=== PATIENT | male | born 1965 | race African-American/Black ===

== ENCOUNTER 2017-11-13 12:02 | Emergency (ER) | payer SELFPAY ==
[~2017-11-13] VITALS: Ht 172.7 cm; Wt 82.0 kg
[2017-11-13 14:01] LABS: BASOPHIL (%) 0.7 % (0-1); EOSINOPHIL (%) 2.8 % (0-5); EOSINOPHIL COUNT 0.2 K/uL (0-0.3); HEMATOCRIT 40.3 % (38.0-50.0); HEMOGLOBIN 13.3 G/DL (12.5-16.6); IMMATURE GRANULOCYTE (%) 0.2 % (0.0-0.7); LYMPHOCYTE (%) 48.2 % (15-42); LYMPHOCYTE COUNT 2.8 K/uL (1.0-2.8); MCV 90.8 FL (86-99); MONOCYTE (%) 7.8 % (3-12); MONOCYTE COUNT 0.5 K/uL (0-0.8); NEUTROPHIL (%) 40.3 % (45-76); NEUTROPHIL COUNT 2.3 K/uL (1.8-6.4); PLATELET COUNT 270 K/uL (156-360); RBC DIS.WIDTH-CV 12.4 % (11.8-14.6); RBC DIS.WIDTH-SD 41.1 % (39-53); RED BLOOD COUNT 4.44 M/uL (4.00-5.50); WHITE BLOOD COUNT 5.8 K/uL (4.1-10.2)
[2017-11-13 14:26] LABS: CK-MB 1.1 ng/mL (0.0-4.9)
[2017-11-13 14:32] LABS: CHLORIDE 104 mEq/L (99-109); POTASSIUM 3.5 mEq/L (3.7-5.4); SODIUM 140 mEq/L (136-147)
[2017-11-13 14:34] LABS: GLUCOSE 96 mg/dL (70-99)
[2017-11-13 14:38] LABS: CREATININE 0.9 mg/dL (0.6-1.3); GFR ESTIMATE (CALCULATED) > 59 mL/min/ (58.99-99999)
[2017-11-13 14:39] LABS: UREA NITROGEN (BUN) 8 mg/dL (9-23)
[2017-11-13 14:40] LABS: CKMB RELATIVE INDEX 0.7 (0.0-3.9); CREATINE KINASE 152 IU/L (1-294); TOTAL CK 152 IU/L (1-294)
[2017-11-13 15:16] VITALS: BP 135/74
== END 2017-11-13 15:18 | disposition home or self-care (01) ==
LOC: EME 12:02
PROVIDERS: Physician Assistant
DX: R25.2 Cramp and spasm (principal); E87.6 Hypokalemia; E83.51 Hypocalcemia
CPT/HCPCS: 80048; 82550; 82553; 85025; 99281; 99284

== ENCOUNTER 2018-02-19 08:08 | Emergency (ER) | payer SELFPAY ==
[~2018-02-19] VITALS: Ht 172.7 cm; Wt 83.2 kg
[2018-02-19 09:11] LABS: BASOPHIL COUNT 0.1 K/uL (0-0.1); EOSINOPHIL (%) 11.1 % (0-5); EOSINOPHIL COUNT 0.8 K/uL (0-0.3); HEMATOCRIT 38.3 % (38.0-50.0); IMMATURE GRANULOCYTE (%) 0.1 % (0.0-0.7); LYMPHOCYTE (%) 36.7 % (15-42); LYMPHOCYTE COUNT 2.6 K/uL (1.0-2.8); MCH 30.6 PG (29.0-34.0); MCHC 33.9 G/DL (30.0-36.0); MCV 90.1 FL (86-99); MONOCYTE COUNT 0.6 K/uL (0-0.8); NEUTROPHIL (%) 42.1 % (45-76); PLATELET COUNT 258 K/uL (156-360); RBC DIS.WIDTH-CV 12.8 % (11.8-14.6); RBC DIS.WIDTH-SD 42.2 % (39-53); RED BLOOD COUNT 4.25 M/uL (4.00-5.50); WHITE BLOOD COUNT 7.1 K/uL (4.1-10.2)
[2018-02-19 09:18] LABS: CHLORIDE 105 mEq/L (99-109); INTER. NORMALIZED RATIO 1.1; POTASSIUM 3.6 mEq/L (3.7-5.4); SODIUM 139 mEq/L (136-147)
[2018-02-19 09:20] LABS: GLUCOSE 90 mg/dL (70-99)
[2018-02-19 09:21] LABS: PTT 30.2 SEC (25-37)
[2018-02-19 09:24] LABS: CREATININE 0.9 mg/dL (0.6-1.3); GFR ESTIMATE (CALCULATED) > 59 mL/min/ (58.99-99999)
[2018-02-19 09:25] LABS: UREA NITROGEN (BUN) 11 mg/dL (9-23)
[2018-02-19] MEDS ORDERED: MOTRIN800 MG PO (10:06)
[2018-02-19 10:42] VITALS: BP 134/62
== END 2018-02-19 10:52 | disposition home or self-care (01) ==
LOC: EME 08:08
PROVIDERS: Nurse Practitioner Family
DX: S86.112A Strain of other muscle(s) and tendon(s) of posterior muscle group at lower leg level, left leg, initial encounter (principal); Y93.02 Activity, running
CPT/HCPCS: 80048; 85025; 85610; 85730; 93971; 99281; 99284